=== PATIENT | male | born 1970 | race Caucasian/White ===

== ENCOUNTER 2016-11-11 10:13 | Emergency (ER) | payer BC ==
[2016-11-11 10:32] VITALS: BP 143/84
--- NOTE | 2016-11-11 11:04 | UC ---
Skin Complaint HPI - HPI Summary HPI Summary: Pt presents iwth c/o sudden onset of "scattered red spots" on face that began 1 day ago. Pt has history of MRSA and is concerned that he is having another "outbreak" - History of Current Complaint Chief Complaint: UCSkin Time Seen by Provider: 11/11/16 10:36 Stated Complaint: SINUS Hx Obtained From: Patient Onset/Duration: Sudden Onset, Lasting Days Skin Exposure Onset/Duration: Days Ago Timing: Constant Onset Severity: Mild Current Severity: Mild Location: Face Character: Pruritus, Redness, Raised Aggravating: Touch Alleviating: Nothing Associated Signs & Symptoms: Positive: Tenderness - Allergy/Home Medications Allergies/Adverse Reactions: Allergies Allergy/AdvReac Type Severity Reaction Status Date / Time Penicillins Allergy Severe rash/hives Verified 11/11/16 10:32 Phenobarbital Allergy Unknown Verified 11/11/16 10:32 Reaction Details Review of Systems Constitutional: Other - malaise Skin: Other - "sores" Eyes: Negative ENT: Negative Respiratory: Negative Cardiovascular: Negative Gastrointestinal: Negative Genitourinary: Negative Motor: Negative Neurovascular: Negative Musculoskeletal: Negative Neurological: Negative Psychological: Negative All Other Systems Reviewed And Are Negative: Yes PMH/Surg Hx/FS Hx/Imm Hx Previously Healthy: Yes Cardiovascular History: Cardiac Disease, Deep Vein Thrombosis, Other - PE Other Cardiovascular History: PE - Surgical History Surgical History: Yes Surgery Procedure, Year, and Place: hernia repair,. VENA CAVA FILTER. AUGUST 2012 - Family History Known Family History: Positive: Cardiac Disease - Social History Occupation: Employed Full-time Lives: With Family Alcohol Use: Rare Substance Use Type: None Smoking Status (MU): Never Smoked Tobacco - Immunization History Most Recent Influenza Vaccination: not this season Physical Exam Triage Information Reviewed: Yes Appearance: Well-Appearing Vital Signs: Initial Vital Signs Temp 98.6 F 11/11/16 10:26 Pulse 64 11/11/16 10:26 Resp 16 11/11/16 10:26 BP 143/84 11/11/16 10:26 Pulse Ox 98 11/11/16 10:26 Vital Signs Reviewed: Yes Eye Exam: Normal Neck exam: Normal Respiratory Exam: Normal Cardiovascular Exam: Normal Musculoskeletal Exam: Normal Neurological Exam: Normal Psychological Exam: Normal Skin Exam: Other - scatterd dime and nickel sized erythematous tender "sores" scattered on face and neck Course/Dx - Differential Diagnoses - Skin Complaint Differential Diagnoses: Cellulitis, MRSA - Diagnoses Provider Diagnoses: cellulitis. abscess. MRSA? Discharge - Discharge Plan Condition: Stable Disposition: HOME Prescriptions: Mupirocin 2% OINT* [Bactroban 2 % Oint*] 1 applic TOPICAL BID #1 tube Sulfamethox/Trimethoprim DS* [Bactrim DS 800/160 TAB*] 1 tab PO Q12H #14 tab Patient Education Materials: Cellulitis (ED) Referrals: Pearl Argueta MD [Primary Care Provider] - If Needed Mishel Millard [Medical Doctor] -
== END 2016-11-11 11:15 | disposition home or self-care (01) ==
LOC: UCCORT 10:13
DX: L03.211 Cellulitis of face (principal); L02.01 Cutaneous abscess of face; Z86.14 Personal history of Methicillin resistant Staphylococcus aureus infection; Z86.711 Personal history of pulmonary embolism; Z86.718 Personal history of other venous thrombosis and embolism
CPT/HCPCS: 99212; G0463

== ENCOUNTER 2016-11-14 20:27 | Emergency (ER) | payer BC ==
[2016-11-14 20:36] VITALS: BP 161/92
[2016-11-14] MEDS ORDERED: DOXYcycline CAP(*) 100 MG PO ONE (20:55)
--- NOTE | 2016-11-14 21:09 | UC ---
Skin Complaint HPI - HPI Summary HPI Summary: This is a 46 yo gentleman with HTN and recent treatment for cellulitis who presented with c/o tick bite. He did not see the tick attached, but noticed an area that appeared to be a recent tick bite over his L ankle this evening. He did not notice it yesterday. No recent fever or other constitutional symptoms. - History of Current Complaint Chief Complaint: UCSkin Stated Complaint: TICK - Allergy/Home Medications Allergies/Adverse Reactions: Allergies Allergy/AdvReac Type Severity Reaction Status Date / Time Penicillins Allergy Severe rash/hives Verified 11/14/16 20:32 Phenobarbital Allergy Unknown Verified 11/14/16 20:32 Reaction Details Review of Systems Constitutional: Negative Skin: Negative Eyes: Negative ENT: Negative Respiratory: Negative Cardiovascular: Negative Gastrointestinal: Negative Genitourinary: Negative Motor: Negative Neurovascular: Negative Musculoskeletal: Negative Neurological: Negative Psychological: Negative All Other Systems Reviewed And Are Negative: Yes PMH/Surg Hx/FS Hx/Imm Hx Cardiovascular History: Hypertension - Surgical History Surgical History: Yes Surgery Procedure, Year, and Place: hernia repair,. VENA CAVA FILTER. AUGUST 2012 - Family History Known Family History: Positive: None, Cardiac Disease - Social History Alcohol Use: Rare Substance Use Type: None Smoking Status (MU): Never Smoked Tobacco - Immunization History Most Recent Influenza Vaccination: not this season Physical Exam Triage Information Reviewed: Yes Appearance: Well-Appearing Vital Signs: Initial Vital Signs Temp 97.4 F 11/14/16 20:32 Pulse 65 11/14/16 20:32 Resp 16 11/14/16 20:32 BP 161/92 11/14/16 20:32 Pulse Ox 97 11/14/16 20:32 Vital Signs Reviewed: Yes Respiratory: Positive: Chest non-tender, Lungs clear, Normal breath sounds Cardiovascular Exam: Normal Cardiovascular: Positive: RRR, No Murmur Skin: Positive: Other - small area of erythema and focal induration with central hyperpigmentation just superior to the lateral malleolus Course/Dx - Course Course Of Treatment: This is a 46 yo gentleman with HTN who presents with concern regarding a recent tick bite. Skin exam shows an area that could be interpreted as a recent tick bite. Discussed utility and timing of prophylaxis with doxycycline. Patient desired doxycycline acknowledging its potential limitations. Recommended close monitoring for EM rash and other constitutional symptoms - Differential Diagnoses - Skin Complaint Differential Diagnoses: Tick Born Illness, Other - Insect bite - Diagnoses Provider Diagnoses: 1. Probable tick bite with possible Lyme exposure Discharge - Discharge Plan Condition: Stable Disposition: HOME Patient Education Materials: Tick Bite (ED) Referrals: Pearl Argueta MD [Primary Care Provider] - Additional Instructions: Activity: As tolerated Instructions: 1. Monitor for classic rash associated with Lyme disease or other symptoms that may be indicative 2. No further antibiotic treatment apart from the doxycycline you received this morning is necessary
== END 2016-11-14 21:04 | disposition home or self-care (01) ==
LOC: UCCORT 20:27
DX: A93.8 Other specified arthropod-borne viral fevers (principal); I10 Essential (primary) hypertension
CPT/HCPCS: 99212; A9270-GY; G0463

== ENCOUNTER 2018-01-10 09:29 | Emergency (ER) | payer BC ==
[2018-01-10 10:10] VITALS: BP 168/89
--- NOTE | 2018-01-10 10:43 | UC ---
Throat Pain/Nasal [place]w HPI - HPI Summary HPI Summary: 47-year-old male with 2-1/2-3 week history of sinus pressure, nasal congestion, sore throat, and cough. States 5 days ago he was evaluated by telemedicine through his place of employment for persistent symptoms and started on Keflex twice a day. States he has been compliant with his antibiotics and symptoms have continued to progressively worsen. He is reporting evening fevers as high as 101 F. Last known fever or worse last evening. Symptoms include frontal sinus pressure, and nasal congestion, bilateral ear pain, sore throat, and a productive cough for green sputum. He has a significant past medical history for unprovoked DVT and PE. He has an implanted vena cava filter for this. Denies chest pain, shortness of breath, redness or swelling of lower extremities , abdominal pain, nausea, vomiting, or diaphoresis. - History of Current Complaint Chief Complaint: UCGeneralIllness Stated Complaint: SINUS COMPLAINT CONGESTION Time Seen by Provider: 01/10/18 10:01 Hx Obtained From: Patient Onset/Duration: Gradual Onset, Still Present, Worse Since - starting Keflex Severity: Moderate Pain Intensity: 9 Cough: Productive - green sputum Associated Signs & Symptoms: Positive: Sinus Discomfort, Fever. Negative: Wheezing, Vomiting, Rash - Allergies/Home Medications Allergies/Adverse Reactions: Allergies Allergy/AdvReac Type Severity Reaction Status Date / Time Penicillins Allergy Rash Verified 01/10/18 10:05 phenobarbital Allergy Unknown Verified 01/10/18 10:05 Reaction Details PMH/Surg Hx/FS Hx/Imm Hx Cardiovascular History: Hypertension, Deep Vein Thrombosis, Other Other Cardiovascular History: Unprovoked PE GI/ History: Other Other GI/ History: IBS - Surgical History Surgical History: Yes Surgery Procedure, Year, and Place: hernia repair,. VENA CAVA FILTER. AUGUST 2012 - Family History Known Family History: Positive: Unknown - Adopted - Social History Occupation: Employed Full-time Lives: With Family Alcohol Use: Occasionally Substance Use Type: None Smoking Status (MU): Never Smoked Tobacco Have You Smoked in the Last Year: No Household Exposure Type: Cigarettes - Immunization History Most Recent Influenza Vaccination: not this season Review of Systems Constitutional: Fever Skin: Negative Eyes: Negative ENT: Sore Throat, Ear Ache - bilateral, Sinus Congestion, Sinus Pain/Tenderness Respiratory: Cough Cardiovascular: Negative Gastrointestinal: Negative Is Patient Immunocompromised?: No All Other Systems Reviewed And Are Negative: Yes Physical Exam Triage Information Reviewed: Yes Appearance: Well-Appearing, No Pain Distress, Obese Vital Signs: Initial Vital Signs Temp 98.5 F 01/10/18 10:01 Pulse 68 01/10/18 10:01 Resp 18 01/10/18 10:01 BP 168/89 01/10/18 10:01 Pulse Ox 96 01/10/18 10:01 Vital Signs Reviewed: Yes Eyes: Positive: Conjunctiva Clear. Negative: Discharge ENT: Positive: Hearing grossly normal, Pharyngeal erythema - Mild with cobblestoning, Nasal congestion, TMs normal, Sinus tenderness - frontal, ethmoid , and maxillary, Uvula midline. Negative: Nasal drainage, Tonsillar swelling, Tonsillar exudate, Trismus, Muffled voice Neck: Positive: Supple, Nontender, No Lymphadenopathy Respiratory: Positive: No respiratory distress, No accessory muscle use, Crackles - RLL, Other: - Loose cough Cardiovascular: Positive: No Murmur, Pulses Normal, Brisk Capillary Refill Abdomen Description: Positive: Nontender, No Organomegaly, Soft Skin Exam: Normal Diagnostics - Radiology No standard instances Xray Interpretation: No Acute Changes Radiology Interpretation Completed By: ED Physician, Radiologist Throat Pain/Nasal Course/Dx - Differential Dx/Diagnosis Provider Diagnoses: Pansinusitis Discharge - Sign-Out/Discharge Documenting (check all that apply): Patient Departure All imaging exams completed and their final reports reviewed: Yes - Discharge Plan Condition: Stable Disposition: HOME Prescriptions: Doxycycline Hyclate 100 mg PO BID #20 tablet Fluticasone NASAL SPRAY 50MCG* [Flonase NASAL SPRAY 50MCG*] 2 spray BOTH NARES DAILY #1 btl Patient Education Materials: Sinusitis (ED) Referrals: Pearl Argueta MD [Primary Care Provider] - 5 Days (Follow up with your primary care provider within 5 days for recheck.) Additional Instructions: Stop the Keflex. Start doxycycline 100 mg 1 tab twice daily for 10 days. Use fluticasone nasal spray 2 sprays each nostril once daily. Use a saline rinse (Netti Pot, Sami Med) twice daily to help loosen secretions and promote drainage. Follow-up with your primary care provider within 5 days for a recheck of your symptoms. Seek immediate medical attention in the emergency room if he developed persistent fever greater than 100.5 F, have chest pain, short of breath, or have any worsening of symptoms. - Billing Disposition and Condition Condition: STABLE Disposition: Home
--- NOTE | 2018-01-10 11:01 | RAD ---
HISTORY: fever and productive cough COMPARISONS: None VIEWS: 4: Frontal dual-energy and lateral views of the chest. FINDINGS: CARDIOMEDIASTINAL SILHOUETTE: The cardiomediastinal silhouette is normal. BELKIS: The belkis are normal. PLEURA: The costophrenic angles are sharp. No pleural abnormalities are noted. LUNG PARENCHYMA: The lungs are clear. ABDOMEN: The upper abdomen is clear. There is no subphrenic gas. BONES AND SOFT TISSUES: Degenerative changes are noted along the spine. OTHER: None. IMPRESSION: NO ACTIVE CARDIOPULMONARY DISEASE.
== END 2018-01-10 11:16 | disposition home or self-care (01) ==
LOC: UCCORT 09:29
DX: J32.4 Chronic pansinusitis (principal); Z86.718 Personal history of other venous thrombosis and embolism; Z86.711 Personal history of pulmonary embolism; Z88.0 Allergy status to penicillin; Z88.8 Allergy status to other drugs, medicaments and biological substances
CPT/HCPCS: 71046; 99212; G0463

== ENCOUNTER 2019-06-05 20:03 | Emergency (ER) | payer BC ==
[2019-06-05 21:21] VITALS: BP 131/75
--- NOTE | 2019-06-05 21:34 | UC ---
Ear Complaint HPI - HPI Summary HPI Summary: 48 year old male with PMH + for DM presents today with increased sinus pressure , L>R, L ear pain, throat pain x 3 days, worsening today. + chills, no fever. no prior sinus/ ear injuries/ problems. no GI symptoms, no SOB/ cough. no recent ABX use. [employer] at [employer], + exposure. - History of Current Complaint Chief Complaint: UCGeneralIllness Stated Complaint: SINUS/EARS Time Seen by Provider: 06/05/19 21:27 Hx Obtained From: Patient Onset/Duration: Sudden Onset, Lasting Days - 3, Still Present, Worse Since - this AM Severity Initially: Mild Severity Currently: Moderate Pain Intensity: 7 Pain Scale Used: 0-10 Numeric Associated Signs/Symptoms: Positive: URI Symptoms - Allergies/Home Medications Allergies/Adverse Reactions: Allergies Allergy/AdvReac Type Severity Reaction Status Date / Time Penicillins Allergy Rash Verified 06/05/19 21:21 phenobarbital Allergy Unknown Verified 06/05/19 21:21 Reaction Details Home Medications: Home Medications Allopurinol TAB* [Zyloprim 300 MG TAB*] 300 mg PO DAILY 06/05/19 [History Confirmed 06/05/19] Atorvastatin* [Lipitor 20 MG*] 20 PO DAILY 06/05/19 [History] metFORMIN* [Glucophage 500 MG TAB *] 500 mg PO DAILY 06/05/19 [History Confirmed 06/05/19] PMH/Surg Hx/FS Hx/Imm Hx Previously Healthy: Yes - DM II Endocrine History: Diabetes - Surgical History Surgical History: Yes Surgery Procedure, Year, and Place: hernia repair,. VENA CAVA FILTER. AUGUST 2012 - Family History Known Family History: Positive: Unknown - Adopted, Non-Contributory - Social History Occupation: Employed Full-time Alcohol Use: Occasionally Substance Use Type: None Smoking Status (MU): Never Smoked Tobacco Have You Smoked in the Last Year: No Household Exposure Type: Cigarettes - Immunization History Most Recent Influenza Vaccination: not this season Review of Systems All Other Systems Reviewed And Are Negative: Yes Constitutional: Positive: Chills, Fatigue ENT: Positive: Sore Throat, Ear Ache, Nasal Discharge, Sinus Congestion, Sinus Pain/Tenderness Respiratory: Positive: Negative Cardiovascular: Positive: Negative Motor: Positive: Negative Neurovascular: Positive: Negative Psychological: Positive: Negative Is Patient Immunocompromised?: No Physical Exam Triage Information Reviewed: Yes Appearance: No Pain Distress, Well-Nourished, Ill-Appearing - mild Vital Signs: Initial Vital Signs Temp 97.0 F 06/05/19 21:16 Pulse 59 06/05/19 21:16 Resp 18 06/05/19 21:16 BP 131/75 06/05/19 21:16 Pulse Ox 97 06/05/19 21:16 Vital Signs Reviewed: Yes Eyes: Positive: Conjunctiva Clear ENT: Positive: Hearing grossly normal, Pharynx normal - PND seen, TMs normal - fluid posterior TM b/l, Sinus tenderness - b/l frontal, submand L>R, Uvula midline. Negative: TM bulging, TM dull, TM red, Tonsillar swelling, Tonsillar exudate, Muffled voice Neck: Positive: Supple, No Lymphadenopathy, Tenderness @ - submand, periaur b/l Respiratory: Positive: Chest non-tender, Lungs clear, Normal breath sounds, No respiratory distress, No accessory muscle use. Negative: Respiratory distress, Decreased breath sounds, Crackles, Rhonchi, Stridor, Wheezing Cardiovascular: Positive: RRR, No Murmur Psychological Exam: Normal Skin Exam: Normal Skin: Negative: Rashes Ear Complaint Course/Dx - Course Course Of Treatment: SInusitis with h/o DM II - Antibiotics as directed, 500mg given tonight, continue with 250mg every evening x 4 days after this - TYlenol/ motrin as needd for pain, headache -Go to ER with increased pain, fever > 102 not brought down by medication, difficulty swallowing, breathing. - FOllow up with primary if no improvement within 2-3 days. - Differential Dx/Diagnosis Differential Diagnosis/HQI/PQRI: Cellulitis, Pharyngitis, TMJ Syndrome Provider Diagnosis: Sinusitis Discharge ED - Sign-Out/Discharge Documenting (check all that apply): Patient Departure All imaging exams completed and their final reports reviewed: No Studies - Discharge Plan Condition: Good Disposition: HOME Prescriptions: Azithromycin TAB* [Zithromax TAB (Z-JENIFFER) 250 mg #6 tabs] 250 mg PO DAILY #4 tab Patient Education Materials: Sinusitis (ED) Referrals: Bruce Welch MD [Primary Care Provider] - Additional Instructions: - Antibiotics as directed, 500mg given tonight, continue with 250mg every evening x 4 days after this - TYlenol/ motrin as needd for pain, headache -Go to ER with increased pain, fever > 102 not brought down by medication, difficulty swallowing, breathing. - FOllow up with primary if no improvement within 2-3 days. - Billing Disposition and Condition Condition: GOOD Disposition: Home
[2019-06-05] MEDS ORDERED: Azithromycin TAB* 250 MG PO ONE (21:35)
== END 2019-06-05 21:43 | disposition home or self-care (01) ==
LOC: UCCORT 20:03
DX: J32.9 Chronic sinusitis, unspecified (principal); J02.9 Acute pharyngitis, unspecified; E11.9 Type 2 diabetes mellitus without complications; H92.02 Otalgia, left ear; Z88.0 Allergy status to penicillin; Z88.8 Allergy status to other drugs, medicaments and biological substances; Z79.84 Long term (current) use of oral hypoglycemic drugs
CPT/HCPCS: 99212; A9270-GY; G0463

== ENCOUNTER 2019-06-10 09:40 | Emergency (ER) | payer BC ==
[2019-06-10 12:16] VITALS: BP 150/86
--- NOTE | 2019-06-10 12:47 | UC ---
FLU HPI - HPI Summary HPI Summary: Pt presents with c/o worsening of bilateral ear ache and sinus pressure Pt was diagnosed with sinusitis on 06/05/19 took last dose of zpac yesterday and woke this morning feeling fatigued and "worse". Son was diagnosed with flu two weeks ago - History of Current Complaint Chief Complaint: UCGeneralIllness Stated Complaint: SINUS EARS NAUSEA Time Seen by Provider: 06/10/19 12:15 Hx Obtained From: Patient Onset/Duration: Sudden Onset, Still Present Severity Currently: Moderate Severity Initially: Moderate Pain Intensity: 7 Associated Signs & Symptoms: Positive: Nasal Congestion, Headache Related Hx: Possible Flu/Infectious Exposure - Risk Factors Influenza Risk Factors: Negative - Allergy/Home Medications Allergies/Adverse Reactions: Allergies Allergy/AdvReac Type Severity Reaction Status Date / Time Penicillins Allergy Rash Verified 06/10/19 12:13 phenobarbital Allergy Unknown Verified 06/10/19 12:13 Reaction Details PMH/Surg Hx/FS Hx/Imm Hx Previously Healthy: Yes Endocrine History: Dyslipidemia Cardiovascular History: Cardiac Disease, Hypertension Respiratory History: Pulmonary Embolism - idiopathic - Surgical History Surgical History: Yes Surgery Procedure, Year, and Place: hernia repair,. VENA CAVA FILTER. AUGUST 2012 - Family History Known Family History: Positive: Unknown - Adopted, Non-Contributory - Social History Occupation: Employed Full-time Lives: With Family Alcohol Use: Occasionally Substance Use Type: None Smoking Status (MU): Never Smoked Tobacco Have You Smoked in the Last Year: No - Immunization History Most Recent Influenza Vaccination: not this season Vaccination Up to Date: Yes Review of Systems All Other Systems Reviewed And Are Negative: Yes Constitutional: Positive: Chills, Fatigue Skin: Positive: Negative Eyes: Positive: Negative ENT: Positive: Ear Ache, Sinus Congestion Respiratory: Positive: Cough Cardiovascular: Positive: Negative Gastrointestinal: Positive: Negative Genitourinary: Positive: Negative Motor: Positive: Negative Neurovascular: Positive: Negative Musculoskeletal: Positive: Myalgia Neurological: Positive: Headache Psychological: Positive: Negative Is Patient Immunocompromised?: No Physical Exam Triage Information Reviewed: Yes Appearance: Ill-Appearing, Obese Vital Signs: Initial Vital Signs Temp 97.8 F 06/10/19 12:11 Pulse 63 06/10/19 12:11 Resp 16 06/10/19 12:11 BP 150/86 06/10/19 12:11 Pulse Ox 99 06/10/19 12:11 Vital Signs Reviewed: Yes Eye Exam: Normal ENT: Positive: Nasal congestion, Sinus tenderness Dental Exam: Normal Neck exam: Normal Respiratory Exam: Normal Cardiovascular Exam: Normal Musculoskeletal Exam: Normal Neurological Exam: Normal Psychological Exam: Normal Skin Exam: Normal Flu Course/Dx - Differential Dx/Diagnosis Differential Diagnosis/HQI/PQRI: Influenza, Upper Respiratory Infection Provider Diagnosis: Sinus congestion, Acute pain of both ears Discharge ED - Sign-Out/Discharge Documenting (check all that apply): Patient Departure All imaging exams completed and their final reports reviewed: No Studies - Discharge Plan Condition: Stable Disposition: HOME Patient Education Materials: Viral Syndrome (ED) Forms: *Work Release Referrals: Bruce Welch MD [Primary Care Provider] - If Needed Additional Instructions: Please follow up with your PCP as needed. It is recommended that you use Coricidin Brand or its generic equivalent to help manage your symptoms. - Billing Disposition and Condition Condition: STABLE Disposition: Home
[2019-06-10 12:48] LABS: Influenza A Molecular Negative (Negative); Influenza B Molecular Negative (Negative)
== END 2019-06-10 13:07 | disposition home or self-care (01) ==
LOC: UCCORT 09:40
DX: H92.03 Otalgia, bilateral (principal); E66.09 Other obesity due to excess calories; M79.10 Myalgia, unspecified site; R09.89 Other specified symptoms and signs involving the circulatory and respiratory systems; R09.81 Nasal congestion; R51 Headache; R53.83 Other fatigue; R68.83 Chills (without fever); R05 Cough; Z88.0 Allergy status to penicillin; Z88.8 Allergy status to other drugs, medicaments and biological substances
CPT/HCPCS: 99212; G0463

== ENCOUNTER 2023-02-14 11:34 | Observation (INO) ==
[~2023-02-14 11:34] MED LIST: Buffered Lidocaine 1% SYRIN 1 ml INTRADERM ONE; HYDROmorphone 1 MG/1 ML SYRINGE IV PRN; Lactated Ringers 1000 ml BAG 1,000 ML IV SCH; Naloxone 0.4 mg VIAL 0.4 mg/ml 1 ml VIAL IV PRN; Ondansetron 4 mg VIAL 2 MG/ML 2 ml VIAL IV PRN
[2023-02-14] MEDS ORDERED: ceFAZolin 1 GM in Dextrose 0 GM/0 ML BAG ONE (11:56)
[2023-02-14] MEDS ORDERED: Tranexamic Acid 1 GM/100ML BAG 2,000 MG/200 ML BAG IV ONE (11:56)
[2023-02-14] MEDS ORDERED: ceFAZolin 2 GM PREMIX 0 GM/0 ML BAG ONE (11:56)
[2023-02-14] MEDS ORDERED: ceFAZolin *3* GM in NS PREMIX 3 GM/100 ML BAG IV ONE (12:00)
[2023-02-14] MEDS ORDERED: Phenylephrine IV 10 MG/ML 1 ml VIAL ONE (12:03)
[2023-02-14] MEDS ORDERED: Bupivacaine 0.5% PF 10 ML SDV VIAL INJ ONE (12:03)
[2023-02-14 12:09] LABS: Rapid COVID-19 Molecular Undetected (Undetected)
[2023-02-14] MEDS ORDERED: Lidocaine 1% MPF 5 ML VIAL ONE (13:25)
[2023-02-14] MEDS ORDERED: Ropivacaine 5 MG/ML 20 ML VIAL 0.5% (100 MG) ONE (13:25)
[2023-02-14] MEDS ORDERED: fentaNYL 100 mcg/2 ml 50 MCG/ML VIAL ONE ×4 (13:55→17:52)
[2023-02-14] MEDS ORDERED: Midazolam 2 mg/2 ml VIAL 1 mg/ml 2 ml VIAL (2 mg) ONE (13:55)
[2023-02-14] MEDS ORDERED: Propofol 10 MG/ML 20 ML BTL ONE (13:57)
[2023-02-14] MEDS ORDERED: ROPIVACAINE 5 MG/ML 30 ML BTL (0.5%) ONE (14:30)
[2023-02-14] MEDS ORDERED: Ondansetron 4 mg VIAL 2 MG/ML 2 ml VIAL ONE ×2 (15:08→17:57)
[2023-02-14] MEDS ORDERED: Dexamethasone IV 4 MG/ML VIAL 1 ml VIAL ONE (15:08)
[2023-02-14] MEDS ORDERED: Sterile Water for Inj 10 ML ONE (15:22)
[2023-02-14] MEDS ORDERED: HYDROmorphone 0.5 MG/0.5 ML SYRINGE ONE (15:32)
[2023-02-14] MEDS ORDERED: Morphine 2 MG/ML SYRINGE IV PRN (15:38)
[2023-02-14] MEDS ORDERED: Ondansetron 4 mg VIAL 2 MG/ML 2 ml VIAL IV PRN (15:38)
[2023-02-14] MEDS ORDERED: Lactulose 30 ml UDC PO PRN (15:38)
[2023-02-14] MEDS ORDERED: Magnesium Hydroxide LIQ 30 ML UDC PO PRN (15:38)
[2023-02-14] MEDS ORDERED: Ondansetron ODT 4 mg TAB 4 MG TAB PO PRN (15:38)
[2023-02-14] MEDS ORDERED: Lactated Ringers 1000 ml BAG 1,000 ML IV SCH ×2 (16:00→20:22)
[2023-02-14] MEDS: fentaNYL 100 mcg/2 ml 50 MCG/ML VIAL IV PRN ×4 (17:53→18:21)
[2023-02-14] MEDS ORDERED: Dextrose 50% Syringe 50 ml 25 GM/50 ML SYRINGE IV PUSH PRN (20:24)
[2023-02-14] MEDS: Lactated Ringers 1000 ml BAG 1,000 ML IV SCH (20:30)
[2023-02-14] MEDS: Magnesium Hydroxide LIQ 30 ML UDC PO SCH (20:55)
[2023-02-14] MEDS: ceFAZolin 1 GM ADVAN 1 GM in NS 0.9% 50 ML 50 ML IVPB SCH (22:41)
[2023-02-15] MEDS ORDERED: Calcium Carb (TUMS) 500 mg CHEW TAB PO ONE (03:06)
[2023-02-15] MEDS: Lactated Ringers 1000 ml BAG 1,000 ML IV SCH (05:19)
[2023-02-15] MEDS: ceFAZolin 1 GM ADVAN 1 GM in NS 0.9% 50 ML 50 ML IVPB SCH ×2 (06:38→13:45)
[2023-02-15 06:53] LABS: Hematocrit 35.6 % (38-53); Hemoglobin 13.1 g/dL (13.2-16.3); Mean Platelet Volume 8.1 fL (7.5-11.2); Platelet Count 167 10^3/uL (150-450)
[2023-02-15 07:16] LABS: Calcium 8.4 mg/dL (8.6-10.3); Creatinine, Serum 1.04 mg/dL (0.67-1.17); Potassium 4.6 mmol/L (3.5-5.0); eGFR CKD-EPI 85.9 (>60)
[2023-02-15] MEDS: Magnesium Hydroxide LIQ 30 ML UDC PO SCH (07:51)
[2023-02-15] MEDS ORDERED: Vitamin THERAPEUTIC TAB PO SCH (09:00)
[2023-02-15 10:26] VITALS: BP 105/68
== END 2023-02-15 14:36 | disposition home or self-care (01) ==
LOC: AA 11:34 → INTOOBSV 11:34 → SSU 19:40
PROVIDERS: ADMIT Orthopaedic Surgery Adult Reconstructive Orthopaedic Surgery; ATTEND Orthopaedic Surgery Adult Reconstructive Orthopaedic Surgery

== ENCOUNTER 2023-10-03 07:30 | Observation (INO) ==
[~2023-10-03 07:30] MED LIST changes: -Buffered Lidocaine 1% SYRIN 1 ml INTRADERM ONE; -HYDROmorphone 1 MG/1 ML SYRINGE IV PRN; -Lactated Ringers 1000 ml BAG 1,000 ML IV SCH; +Metoclopramide 5 MG/ML VIAL (10 mg) IV PRN; +NS 0.45% 1000 ml BAG 1,000 ML IV SCH; +fentaNYL 100 mcg/2 ml 50 MCG/ML VIAL IV PRN
[2023-10-03] MEDS ORDERED: ceFAZolin 2 GM in NS PREMIX 2 GM/100 ML BAG IVPB ONE (12:23)
[2023-10-03] MEDS ORDERED: Naloxone 0.4 mg VIAL 0.4 mg/ml 1 ml VIAL IV PRN (12:33)
[2023-10-03] MEDS ORDERED: Scopolamine 1 mg/72hr PATCH TRANSDERM ONE (12:33)
[2023-10-03] MEDS ORDERED: Metoclopramide 5 MG/ML VIAL (10 mg) IV PRN (12:33)
[2023-10-03] MEDS ORDERED: Buffered Lidocaine 1% SYRIN 1 ml INTRADERM ONE (12:33)
[2023-10-03] MEDS ORDERED: Acetaminophen IV 1 GM/100ML 1,000 MG/100 ML BAG IV ONE (12:33)
[2023-10-03] MEDS ORDERED: Ondansetron 4 mg VIAL 2 MG/ML 2 ml VIAL IV PRN ×2 (12:33→16:44)
[2023-10-03 12:51] LABS: Rapid COVID-19 Molecular Undetected (Undetected)
[2023-10-03] MEDS ORDERED: NS 0.45% 1000 ml BAG 1,000 ML IV SCH (13:00)
[2023-10-03] MEDS: Lactated Ringers 1000 ml BAG 1,000 ML IV SCH ×3 (13:32→22:34)
[2023-10-03] MEDS ORDERED: Levalbuterol HFA INHALER MDI ONE (14:08)
[2023-10-03] MEDS ORDERED: Midazolam 2 mg/2 ml VIAL 1 mg/ml 2 ml VIAL (2 mg) ONE ×2 (14:08→14:16)
[2023-10-03] MEDS ORDERED: Propofol 10 MG/ML 20 ML BTL ONE (14:10)
[2023-10-03] MEDS ORDERED: fentaNYL 100 mcg/2 ml 50 MCG/ML VIAL ONE ×4 (14:10→19:23)
[2023-10-03] MEDS ORDERED: Lidocaine 2% PF 5 ML VIAL ONE (14:10)
[2023-10-03] MEDS ORDERED: Dexamethasone IV 4 MG/ML VIAL 1 ml VIAL ONE ×2 (14:13→14:16)
[2023-10-03] MEDS ORDERED: Ondansetron 4 mg VIAL 2 MG/ML 2 ml VIAL ONE (14:13)
[2023-10-03] MEDS ORDERED: ROPIVACAINE 5 MG/ML 30 ML BTL (0.5%) ONE ×2 (14:17→14:53)
[2023-10-03] MEDS ORDERED: Rocuronium 50 mg VIAL 10 mg/ml 5 ml VIAL (50 mg) ONE ×3 (15:22→17:17)
[2023-10-03] MEDS ORDERED: HYDROmorphone 0.5 MG/0.5 ML SYRINGE ONE ×2 (16:10→18:26)
[2023-10-03] MEDS ORDERED: Ondansetron ODT 4 mg TAB 4 MG TAB PO PRN (16:44)
[2023-10-03] MEDS ORDERED: Morphine 2 MG/ML SYRINGE IV PRN (16:44)
[2023-10-03] MEDS ORDERED: Calcium Carb (TUMS) 500 mg CHEW TAB PO PRN (16:44)
[2023-10-03] MEDS ORDERED: Magnesium Hydroxide LIQ 30 ML UDC PO PRN (16:44)
[2023-10-03] MEDS ORDERED: Lactulose 30 ml UDC PO PRN (16:44)
[2023-10-03] MEDS: fentaNYL 100 mcg/2 ml 50 MCG/ML VIAL IV PRN (18:51)
[2023-10-03] MEDS ORDERED: HYDROmorphone 1 MG/1 ML SYRINGE ONE (19:56)
[2023-10-03] MEDS: HYDROmorphone 1 MG/1 ML SYRINGE IV SLOW PU PRN (19:57)
[2023-10-03] MEDS: Acetaminophen IV 1 GM/100ML 1,000 MG/100 ML BAG IV ONE (21:05)
[2023-10-03] MEDS: Scopolamine 1 mg/72hr PATCH TRANSDERM ONE (21:06)
[2023-10-03] MEDS: Buffered Lidocaine 1% SYRIN 1 ml INTRADERM ONE (21:06)
[2023-10-03] MEDS: Magnesium Hydroxide LIQ 30 ML UDC PO SCH (22:27)
[2023-10-03] MEDS: ceFAZolin *3* GM in NS PREMIX 3 GM/100 ML BAG IV SCH (23:31)
[2023-10-04 06:08] LABS: Hematocrit 38.1 % (38-53); Hemoglobin 13.4 g/dL (13.2-16.3); Mean Platelet Volume 7.9 fL (7.5-11.2); Platelet Count 191 10^3/uL (150-450)
[2023-10-04 06:25] LABS: Calcium 8.5 mg/dL (8.6-10.3); Creatinine, Serum 1.08 mg/dL (0.67-1.17); Potassium 4.4 mmol/L (3.5-5.0); eGFR CKD-EPI 81.5 (>60)
[2023-10-04] MEDS: Vitamin THERAPEUTIC TAB PO SCH (07:44)
[2023-10-04 14:25] VITALS: BP 113/68
== END 2023-10-04 16:02 | disposition home or self-care (01) ==
LOC: MCHOB 11:46 → AA 12:01 → INTOOBSV 12:01 → SSU 19:56
PROVIDERS: ADMIT Orthopaedic Surgery Adult Reconstructive Orthopaedic Surgery; ATTEND Orthopaedic Surgery Adult Reconstructive Orthopaedic Surgery